=== PATIENT | female | born 1945 | race Caucasian/White ===

== ENCOUNTER 2018-01-18 15:36 | Emergency (ER) | payer MEDICARE, MEDICAID ==
[~2018-01-18] VITALS: Ht 167.6 cm; Wt 104.0 kg
[~2018-01-18 15:36] MED LIST: ALBU8HFA PO; AZEL30SP BOTHNARES; METH4TAB81 PO; PRED50TA PO
[2018-01-18 15:39] VITALS: BP 172/66
[2018-01-18] MEDS ORDERED: ipratropium/albuterol 3ml nebule NEB ONE (15:50)
[2018-01-18] MEDS ORDERED: METH4TAB81 PO (15:51)
[2018-01-18] MEDS ORDERED: ALBU8.5H8 IH (15:51)
[2018-01-18] MEDS ORDERED: DOXY100C43 PO (15:51)
== END 2018-01-18 16:34 | disposition home or self-care (01) ==
LOC: ER 15:36
DX: J44.1 Chronic obstructive pulmonary disease with (acute) exacerbation (principal); Z90.49 Acquired absence of other specified parts of digestive tract; Z79.899 Other long term (current) drug therapy; Z87.891 Personal history of nicotine dependence
CPT/HCPCS: 94640; 94760; 99284

== ENCOUNTER 2018-04-29 16:26 | Emergency (ER) | payer MEDICARE, MEDICAID ==
[~2018-04-29] VITALS: Ht 167.6 cm; Wt 95.0 kg
[~2018-04-29 16:26] MED LIST changes: +ALBU8.5H8 IH
[2018-04-29] MEDS ORDERED: CITA-278 PO (17:07)
[2018-04-29] MEDS ORDERED: RISP4TAB7 PO (17:07)
[2018-04-29 17:40] LABS: BASOPHILS % (AUTO) 0.7 % (0-1); EOSINOPHILS # (AUTO) 0.1 X10'3 (0-0.9); EOSINOPHILS % (AUTO) 2.4 % (0-6); HEMATOCRIT 38.8 % (35.0-45.0); HEMOGLOBIN 12.8 g/dl (12.0-16.0); LYMPHOCYTES # (AUTO) 1.5 X10'3 (1.1-4.8); LYMPHOCYTES % (AUTO) 24.7 % (21-51); MEAN CORPUSCULAR HEMOGLOBIN 30.1 PG (27.0-31.0); MEAN CORPUSCULAR HGB CONC 33.1 g/dL (33.0-36.5); MEAN CORPUSCULAR VOLUME 90.8 FL (78-98); MEAN PLATELET VOLUME 8.2 FL (7.4-10.4); MONOCYTES # (AUTO) 0.6 X10'3 (0-0.9); MONOCYTES % (AUTO) 9.2 % (2-12); NEUTROPHILS # (AUTO) 3.9 X10'3 (1.8-7.7); PLATELET COUNT 196 X10'3 (140-440); RED BLOOD COUNT 4.27 X10'6 (4.20-5.60); WHITE BLOOD COUNT 6.1 X10'3 (4.5-11.0)
[2018-04-29 17:55] LABS: ALANINE AMINOTRANSFERASE 19 U/L (12-78); ALBUMIN 3.4 G/DL (3.4-5.0); ALBUMIN/GLOBULIN RATIO 1.1 (1.1-1.5); ALKALINE PHOSPHATASE 60 IU/L (46-116); ANION GAP 6 (8-16); ASPARTATE AMINO TRANSFERASE 12 U/L (10-37); BILIRUBIN,TOTAL 0.2 MG/DL (0.1-1.0); BLOOD UREA NITROGEN 17 MG/DL (7-18); BUN/CREATININE RATIO 23.3 (6.6-38.0); CALCIUM 8.6 MG/DL (8.5-10.1); CHLORIDE 104 MMOL/L (99-107); CREATININE 0.73 MG/DL (0.40-0.90); ETHANOL < 0.010 GM/DL (0.0-0.010); GLUCOSE 90 MG/DL (70-104); SODIUM 141 MMOL/L (135-145); TOTAL CARBON DIOXIDE 31.4 MMOL/L (24-32); TOTAL PROTEIN 6.6 G/DL (6.4-8.2); eGFR 78 ML/MIN
[2018-04-29] MEDS ORDERED: RISP2TAB3 PO (18:00)
[2018-04-29 18:26] LABS: CLARITY,URINE CLEAR (Clear); COLOR,URINE YELLOW (Yellow); GLUCOSE, URINE NEGATIVE (Neg); KETONES,URINE NEGATIVE (Neg); LEUKOCYTE ESTERASE ,URINE NEGATIVE (Neg); NITRITES, URINE NEGATIVE (Neg); OCCULT BLOOD,URINE TRACE-LYSED (Neg); PROTEIN,URINE NEGATIVE (Neg); UA COLLECTION TYPE CLN CATCH MIDSTREAM; UROBILINOGEN,URINE 0.2 E.U/dL (0.2-1.0)
[2018-04-29 18:28] LABS: URINE AMPHETAMINE SCREEN NEGATIVE (Neg); URINE BARBITUATE SCREEN NEGATIVE (Neg); URINE BENZODIAZEPINES SCREEN NEGATIVE (Neg); URINE CANNABINOID SCREEN NEGATIVE (Neg); URINE COCAINE SCREEN NEGATIVE (Neg); URINE METHADONE SCREEN NEGATIVE (Neg); URINE OPIATE SCREEN NEGATIVE (Neg); URINE PHENCYCLIDINE SCREEN NEGATIVE (Neg)
[2018-04-29 18:44] LABS: SQUAMOUS EPITHELIAL CELL,UR FEW /LPF (FEW)
[2018-04-29 18:45] LABS: BACTERIA,URINE NONE SEEN /HPF (Neg); RBC,URINE 0-2 /HPF (0-2); WBC,URINE NONE SEEN /HPF (0-4)
--- NOTE | 2018-04-29 19:14 | NUR ---
Telepsych MD called for information on case, patient woken and aware of MD call. Will continue to monitor.
[2018-04-29] MEDS: risperiDONE 2mg tablet PO SCH (20:48)
--- NOTE | 2018-04-30 01:44 | NUR ---
Resting in bed with eyes closed, appearing to sleep comfortably with even and unlabored respirations. No new concerns or issues noted. Will continue to monitor.
--- NOTE | 2018-04-30 07:00 | NUR ---
Received pt lying in bed without complaints, talking quietly to herself.
[2018-04-30] MEDS: citalopram 20mg tablet PO SCH (08:00)
[2018-04-30] MEDS: risperiDONE 2mg tablet PO SCH ×2 (08:13→19:35)
--- NOTE | 2018-04-30 09:00 | NUR ---
Pt ate breakfast and remains pleasantly confused. Pt also delusional stating that she has a two year old child and that she came in here .
--- NOTE | 2018-04-30 11:00 | NUR ---
Pt remains in bed without complaints. Pt did make some phone calls and remained appropriate. Pt was incontinent of urine. She was able to ambulate to the bathroom and clean up herself.
--- NOTE | 2018-04-30 13:00 | NUR ---
Pt up to the bathroom x 1 and was in the bathroom talking heatedly to herself. Pt appeared somewhat agitated when she exited, but was appropriate when staff asked her if she was ok.
--- NOTE | 2018-04-30 15:00 | NUR ---
Pt continues to rest quietly in bed without complaints talking quietly to herself at times.
--- NOTE | 2018-04-30 17:00 | NUR ---
pt resting quietly in the bed without complaints.
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
--- NOTE | 2018-04-30 21:16 | NUR ---
APPEARS TO BE SLEEPING, NO FURTHER OUTBURSTS.
[2018-05-01] MEDS ORDERED: acetaminophen 325mg tablet PO PRN (05:20)
--- NOTE | 2018-05-01 06:08 | NUR ---
PT MEDICATED FOR C/O LOW BACK PAIN.
--- NOTE | 2018-05-01 07:10 | NUR ---
RESTING ON LEFT SIDE EYES CLOSED RR EQUAL AND UNLABORED
--- NOTE | 2018-05-01 08:03 | NUR ---
RESTING ON LEFT SIDE EYES CLOSED RR EQUAL AND UNLABORED
[2018-05-01] MEDS: citalopram 20mg tablet PO SCH (08:21)
[2018-05-01] MEDS: risperiDONE 2mg tablet PO SCH ×2 (08:21→19:56)
--- NOTE | 2018-05-01 08:26 | NUR ---
PT AWAKE ATE 100% OF BREAKFAST
--- NOTE | 2018-05-01 08:47 | NUR ---
UP TO BR, STEADY GATE, NO NEEDS
--- NOTE | 2018-05-01 09:11 | NUR ---
UP TO BR
--- NOTE | 2018-05-01 10:47 | NUR ---
UP TO BR
--- NOTE | 2018-05-01 14:56 | NUR ---
PT AWAKE SITTING ON SIDE OF BED READING A BOOK.
--- NOTE | 2018-05-01 17:58 | NUR ---
PT AWAKE WAITING FOR DINNER
--- NOTE | 2018-05-02 03:38 | NUR ---
Pt had an incontient episode of urine. Pt given fresh pjamas and fresh bedlinen was placed on bed. Pt requested sanitary towel and mesh undergarments - both provided for pt. Pt ambulated to restroom to change, no assistance required.
--- NOTE | 2018-05-02 04:24 | NUR ---
AWAKE EARLY, INCONT OF URINE, GIVEN BATH WIPES AND CLEAN GOWN/ LINEN.
--- NOTE | 2018-05-02 07:00 | NUR ---
PT RESTING QUIETLY, RESPIRATIONS NORMAL
--- NOTE | 2018-05-02 08:00 | NUR ---
PT UP TO NURSES STATION REQUESTING NEW GOWN.
--- NOTE | 2018-05-02 09:00 | NUR ---
PT EATING BREAKFAST.
--- NOTE | 2018-05-02 09:59 | NUR ---
PT ARGUING WITH HERSELF REGARDING OATMEAL
[2018-05-02] MEDS: risperiDONE 2mg tablet PO SCH ×2 (10:50→19:37)
[2018-05-02] MEDS: citalopram 20mg tablet PO SCH (10:50)
--- NOTE | 2018-05-02 11:00 | NUR ---
PT REQUESTING WATER
--- NOTE | 2018-05-02 12:00 | NUR ---
PT EATING LUNCH
--- NOTE | 2018-05-02 13:00 | NUR ---
PT RESTING QUIETLY
--- NOTE | 2018-05-02 14:00 | NUR ---
PT RESTING QUIETLY
--- NOTE | 2018-05-02 15:00 | NUR ---
PT RESTING QUIETLY
--- NOTE | 2018-05-02 16:00 | NUR ---
PT RESTING COMFORTABLY
--- NOTE | 2018-05-02 17:23 | NUR ---
PT UP TO RESTROOM
[2018-05-02 17:35] VITALS: BP 141/58
--- NOTE | 2018-05-02 19:48 | NUR ---
AWAITING TRANSFER TO [facility]
--- NOTE | 2018-05-02 20:48 | NUR ---
[facility] CALLED AND WILL BE DOWN TO BROADCAST DIRECTOR OPERATIONS PT SHORTLY
== END 2018-05-02 21:06 ==
LOC: ER 16:27
DX: F20.9 Schizophrenia, unspecified (principal); J45.909 Unspecified asthma, uncomplicated; F41.9 Anxiety disorder, unspecified
CPT/HCPCS: 36415; 80053; 80305; 80320; 81001; 85025; 99285

== ENCOUNTER 2018-05-02 19:15 | Inpatient (IN) | payer MEDICARE, MEDICAID ==
[~2018-05-02] VITALS: Ht 167.6 cm; Wt 109.1 kg
[~2018-05-02 19:15] MED LIST changes: -ALBU8.5H8 IH; -AZEL30SP BOTHNARES; +CITA-278 PO; -METH4TAB81 PO; -PRED50TA PO; +RISP2TAB3 PO
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
[2018-05-03] MEDS ORDERED: mag hydrox/Alum hydrox/simeth 30ml oral suspension PO PRN (00:25)
[2018-05-03] MEDS ORDERED: magnesium hydroxide 30ml (MOM) UD suspension PO PRN (00:25)
[2018-05-03 07:16] VITALS: BP 149/65
[2018-05-03] MEDS ORDERED: risperiDONE 2mg tablet PO SCH (08:00)
[2018-05-03] MEDS: citalopram 20mg tablet PO SCH (08:44)
[2018-05-03] MEDS ORDERED: tuberculin, purif. prot. deriv. 5 units/0.1ml ID ONE (10:00)
--- NOTE | 2018-05-03 15:19 | NUR ---
1:1 DISCHARGE PLANNING WILFRID contacted Braxton at [place] Office regarding patient to learn the [facility]'s perspective regarding LPS Conservatorship. WILFRID informed that PG meeting would occur on 05/04/2018 and Braxton would discuss patient at meeting, then follow up. WILFRID transferred to Dr. Stephan Lockwood voicemail. WILFRID left message regarding concerns and questions from Dr. Boggs during tx team. WILFRID left contact information and request for a return call. NADER Graves
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
[2018-05-03 20:00] VITALS: BP 146/50
[2018-05-03] MEDS: risperiDONE 2mg tablet PO SCH (20:48)
[2018-05-03] MEDS: risperiDONE 0.5mg tablet PO SCH (20:48)
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
[2018-05-04] MEDS: citalopram 20mg tablet PO SCH (07:45)
[2018-05-04] MEDS: risperiDONE 0.5mg tablet PO SCH ×2 (07:46→21:02)
[2018-05-04] MEDS: risperiDONE 2mg tablet PO SCH ×2 (07:46→21:02)
[2018-05-04 07:58] VITALS: BP 143/55
--- NOTE | 2018-05-04 08:33 | NUR ---
1:1 DISCHARGE PLANNING 08:31 hours WILFRID made TC to Braxton at [place] Office [phone], to learn the [facility]'s decision regarding LPS Conservatorship for patient. WILFRID left message requesting a return contact. NADER Graves Addendum: 05/04/18 at 1047 by Nora Ochoa 10:39 hours WILFRID contacted [place] at [employer], who reports she does not have status update regarding Probate Conservatorship and transferred SW to Laura Mckinney, [employer] of PG. WILFRID left message requesting return contact with update regarding patient's status from court on 05/03/2018. NADER Graves Addendum: 05/04/18 at 1207 by Nora Ochoa WILFRID made TC to [place] [facility] Braxton at [phone], who reports she will not confirmation of the county's decision regarding LPS Conservatorship until administrative team and psychologist are contacted to interview pt and assess her level of need. SW agreed to return contact to [facility] by the end of the week. NADER Graves
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
[2018-05-04 19:17] VITALS: BP 143/48
[2018-05-04 19:19] VITALS: BP_SYST 143
[2018-05-04 20:00] VITALS: BP 120/54
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
[2018-05-05 08:00] VITALS: BP 123/54
[2018-05-05] MEDS: citalopram 20mg tablet PO SCH (08:28)
[2018-05-05] MEDS: risperiDONE 2mg tablet PO SCH ×2 (08:28→21:19)
[2018-05-05] MEDS: risperiDONE 0.5mg tablet PO SCH ×2 (08:29→21:19)
--- NOTE | 2018-05-05 14:22 | NUR ---
1:1 DISCHARGE PLANNING SW received TC from Dr. Stephan Lockwood at [facility], who reports he has been working with administrative team at [facility] regarding potential LPS conservatorship of pt. Dr. Lockwood confirmed [facility] allows 3 administrative days and agreed to contact Public [facility] to present current information and repeat hospitalization of pt. NADER Graves
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
[2018-05-05 19:52] VITALS: BP 120/60
[2018-05-05] MEDS: ipratropium/albuterol 3ml nebule NEB PRN (20:38)
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
[2018-05-06] MEDS: risperiDONE 0.5mg tablet PO SCH ×2 (07:02→20:26)
[2018-05-06] MEDS: risperiDONE 2mg tablet PO SCH ×2 (07:02→20:26)
[2018-05-06] MEDS: citalopram 20mg tablet PO SCH (07:03)
[2018-05-06 08:00] VITALS: BP 136/62
--- NOTE | 2018-05-06 09:14 | NUR ---
Initial: Pt admitted to [facility] with psychosis. Pt currently on a regular diet with documented PO intake 100% throughout LOS meeting nutrient needs. [facility] 05/05. No nutrition diagnosis at this time. Will continue to follow. Recommendations: 1) Continue with regular diet 2) Weekly wt Addendum: 05/06/18 at [address] Amended: Links added.
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
[2018-05-06 19:00] VITALS: BP 129/50
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
[2018-05-07] MEDS: ipratropium/albuterol 3ml nebule NEB PRN (07:19)
[2018-05-07 07:49] VITALS: BP 152/57
[2018-05-07] MEDS: citalopram 20mg tablet PO SCH (08:01)
[2018-05-07] MEDS: risperiDONE 0.5mg tablet PO SCH ×2 (08:01→21:39)
[2018-05-07] MEDS: risperiDONE 2mg tablet PO SCH ×2 (08:01→21:39)
--- NOTE | 2018-05-07 14:14 | NUR ---
1:1 DISCHARGE PLANNING WILFRID made TC to [facility] at [place] Office [phone], leaving message regarding pt placement and updates. WILFRID requested a return contact. NADER Graves
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
[2018-05-07 19:35] VITALS: BP 144/50
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
[2018-05-08 07:47] LABS: CHOLESTEROL 196 MG/DL (0-200); HDL CHOLESTEROL 66 MG/DL (35-60); LDL CHOLESTEROL 117 MG/DL (50-100); TRIGLYCERIDES 70 MG/DL (20-135)
[2018-05-08 07:55] LABS: HEMOGLOBIN A1C 5.6 % (4.5-6.2)
[2018-05-08] MEDS: risperiDONE 2mg tablet PO SCH ×2 (07:57→20:20)
[2018-05-08] MEDS: risperiDONE 0.5mg tablet PO SCH ×2 (07:57→20:20)
[2018-05-08] MEDS: citalopram 20mg tablet PO SCH (07:57)
[2018-05-08 08:00] VITALS: BP 138/50
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
[2018-05-08 20:00] VITALS: BP 108/84
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
[2018-05-09 07:16] VITALS: BP 142/70
[2018-05-09] MEDS: risperiDONE 2mg tablet PO SCH ×2 (08:03→20:09)
[2018-05-09] MEDS: citalopram 20mg tablet PO SCH (08:03)
[2018-05-09] MEDS: risperiDONE 0.5mg tablet PO SCH ×2 (08:04→20:10)
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
[2018-05-09 20:00] VITALS: BP_SYST 141; BP_SYST 166; BP_DIAS 58; BP_DIAS 65
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
[2018-05-10 08:00] VITALS: BP 148/41
[2018-05-10] MEDS: citalopram 20mg tablet PO SCH (08:00)
[2018-05-10] MEDS: risperiDONE 2mg tablet PO SCH ×3 (08:00→20:28)
[2018-05-10] MEDS: risperiDONE 0.5mg tablet PO SCH (08:02)
[2018-05-10] MEDS: acetaminophen 325mg tablet PO PRN (10:05)
[2018-05-10 20:00] VITALS: BP 141/58
--- NOTE | 2018-05-11 02:38 | NUR ---
RN PROGRESS NOTE: Chief Complaint: Psychosis Legal hold: 5250 Client on involuntary status for GD Report received from TIFF Melendez with use of SBAR: Why are they here: This is a woman with long history of mental illness. She comes to [facility] with grave disability. She was staying at the [facility] when she started acting psychotic and irate, making statements about being raped and excreting other peoples feces. She is now homeless with nowhere to go. Diagnosis/presenting symptoms: Paranoid Schizophrenia with delusional statements, paranoia, GD. Assessment: What has happened this shift: The patient was in her bed at shift change. She agreed to 1:1 at bedside. "I just have to lay down to get my breathing recreated you know, I get that special air effect when I lie down." She was done talking to me and began having a conversation with nobody. "She could have been my daughter, I sure love her. You don't have to use me as a Guinea Pig to operate on. What are you gonna do fuck me with your scar tissue? Answer the question Carlos Craven, quit infusing me with your sperm. You have to stop eating cause I'm tired of shitting out your food." The patient remained in her bed all night, took her HS meds and declined snacks. S/I, H/I: Denies A/VH: Denies, but is heard responding to internal stimuli. Sleep: Stayed in bed all shift. ADL's: Independent Group attendance: No groups at night. Were meds taken: Yes Any med S/E: None noted. Mental Status Exam Appearance: Elderly woman lying in bed looking disheveled, hair not brushed. Eye contact: Direct. Behavior: Pleasant and cooperative. Speech: Soft voice. normal rate/volume. Mood: "I feel fine." Affect: Blunted, flat. Thought process: Tangential, disorganized, loose associations. Thought Content: Many delusional statements made. Cognition: A&O Insight: Poor. Judgment: Poor. Interventions: PRN's used: None Therapeutic interventions: Provided active listening with positive reinforcement, maintained a safe and therapeutic environment, encouraged self performance of ADLs and offered assistance, encouraged pt. to focus on tasks, and maintained Q 15 min safety checks. Restraints/seclusion/emergency medication: N/A Justification of Continued Inpatient Treatment: Pt. requires further stabilization on medications and remains gravely disabled without the ability to manage her environment or a discharge plan. Continued therapeutic support and medication management needed to provide stabilization, prevent decompensation, decreasing risk to patient and readmittance.
[2018-05-11 07:18] VITALS: BP 166/86
[2018-05-11] MEDS: risperiDONE 2mg tablet PO SCH ×3 (08:47→20:28)
[2018-05-11] MEDS: risperiDONE 0.5mg tablet PO SCH (08:47)
[2018-05-11] MEDS: citalopram 20mg tablet PO SCH (08:48)
--- NOTE | 2018-05-11 16:09 | NUR ---
1:1 DISCHARGE PLANNING SW sent referral to [facility] AOT team for possible AOT housing and program acceptance. SW informed pt is not being considered for [facility] Conservatorship at this time. NADER Graves
--- NOTE | 2018-05-11 16:29 | NUR ---
RN PROGRESS NOTE: DB note Chief Complaint: Psychosis Legal hold: 5250 Client on involuntary status for GD Report received from TIFF Melendez with use of SBAR: Why are they here: This is a woman with long history of mental illness. She comes to [facility] with grave disability. She was staying at the [facility] when she started acting psychotic and irate, making statements about being raped and excreting other peoples feces. She is now homeless with nowhere to go. Diagnosis/presenting symptoms: Paranoid Schizophrenia with delusional statements, paranoia, GD. Assessment: What has happened this shift: Pt. Is calm and cooperative throughout the day. Pt. Is seen in the day room in group and eating her meals. Pt. Has been focused on writing a writ to protest her conserve, talking with staff about how to properly fill one out. Write completed and sent to Anna to submit. Pt. Reports she took a big formed BM today. WILFRID sent referral to [facility] AOT team for possible AOT housing and program acceptance. WILFRID informed pt is not being considered for [facility] Conservatorship at this time. S/I, H/I: Denies A/VH: Pt. Denies, but is heard responding to internal stimuli. Sleep: Pt. Was up all day. ADL's: Independent Group attendance: Pt. Went to group. Were meds taken: Yes Any med S/E: None noted. Mental Status Exam Appearance: Elderly woman looking disheveled, hair not brushed. Eye contact: Direct. Behavior: Pleasant and cooperative. Speech: Soft voice. normal rate/volume. Mood: "I feel good" Affect: Blunted, flat. Thought process: Tangential, disorganized, loose associations. Thought Content: Many delusional statements made. Cognition: A&O Insight: Poor. Judgment: Poor. Interventions: PRN's used: None Therapeutic interventions: Provided active listening with positive reinforcement, maintained a safe and therapeutic environment, encouraged self performance of ADLs and offered assistance, encouraged pt. to focus on tasks, and maintained Q 15 min safety checks. Restraints/seclusion/emergency medication: N/A Justification of Continued Inpatient Treatment: Pt. requires further stabilization on medications and remains gravely disabled without the ability to manage her environment or a discharge plan. Continued therapeutic support and medication management needed to provide stabilization, prevent decompensation, decreasing risk to patient and readmittance.
[2018-05-11 19:58] VITALS: BP 118/55
--- NOTE | 2018-05-12 03:15 | NUR ---
Nursing Note: Chief Complaint: Psychosis Legal hold: 5250 Client on involuntary status for GD Report received from nurse with use of SBAR: TIFF Saeed Why are they here: Pt has no plan for food, clothing, and skilled nursing and has a long MH history of paranoid schizophrenia. She was a patient at [facility] from 04/07 to 04/29, and was discharged to [facility], however become psychotic and irate, making delusional statements. Pt/ was brought to [facility] ER and was placed on a 5150 fro GD. Pt. continues to make delusional statements and remains on a 5250, however is in the process of filing a Writ. Diagnosis/presenting symptoms: Pt. presents with continued active delusions, irritability, and is guarded this shift and resistive care. Assessment What has happened this shift: Pt. in laying in bed at beginning of the shift, continued to isolate in room throughout the shift. This keno writer/runner awoke pt. to administer medications at HS. Attempted to complete 1:1, she presents with continued active delusions, irritability, and is guarded and resistive care. Pt. is compliant with medications, however refuses physical/mental assessment or HS snack, states, "Not now, I just want to sleep." Pt. up out of bed to check the clock in the hallway at approximately 2340, she is unable to accurately tell the time and asks this keno writer/runner to assist her, she then returns to bed. Pt. up again at approximately midnight and requests to watch TV. Pt. in the Recreation Room making continuous loud burping noises, this keno writer/runner asks her if there is something she needs and pt requests a snack. This keno writer/runner encourages pt. to return to bed after she eats her snack, she complies. S/I, H/I: N/A A/VH: Remains actively delusional Sleep: Presents as fatigued, in bed throughout the shift ADL's: Able to eat and use the BR independently, however is incontinent at times (changes own brief) Group attendance: Pt. attended groups today Were meds taken: Yes Any med S/E: None Mental Status Exam Appearance: Hair disheveled, however appropriately dressed in own clothing. Eye contact: Poor Behavior: Reisistive to care, guarded, and withdrawn. Psychomotor activity WNL Speech: Soft and monotonous Mood: Paranoid delusional and guarded Affect: Constricted Thought process: Internal preoccupation regarding delusions and thought blocking Thought Content: Paranoid delusional with perseveration regarding delusional thinking Cognition: A&O X2 (name and place) Insight: Poor Judgment: Poor Interventions PRN's used: None Therapeutic interventions: Provided active listening, maintained a safe and therapeutic environment, provided clear/simple instructions, reoriented to reality as needed, encouraged self performance of ADLs and offered assistance, encouraged pt. to focus on tasks, and maintained Q 15 min safety checks. Restraints/seclusion/emergency medication: N/A Justification of Continued Inpatient Treatment: Pt. remains gravely disabled without the ability to manage her environment or a discharge plan.
[2018-05-12 07:47] VITALS: BP 125/68
[2018-05-12] MEDS: citalopram 20mg tablet PO SCH (08:54)
[2018-05-12] MEDS: risperiDONE 2mg tablet PO SCH ×3 (08:54→20:47)
[2018-05-12] MEDS: risperiDONE 0.5mg tablet PO SCH (08:54)
--- NOTE | 2018-05-12 12:01 | NUR ---
Reassessment: Documented PO intake 100% on regular diet meeting nutrient needs. [facility] 05/12. will continue to follow. Recommendations: 1) Continue with regular diet 2) Weekly wt Addendum: 05/12/18 at [address] Amended: Links added.
--- NOTE | 2018-05-12 17:07 | NUR ---
Nursing Note Chief Complaint: Psychosis Legal hold: 5250 Client on involuntary status for GD Report received from TIFF Gaffney with use of SBAR Why are they here: Pt has no plan for food, clothing, and retirement and has a long MH history of paranoid schizophrenia. She was a patient at [facility] from 04/07 to 04/29, and was discharged to [facility], however become psychotic and irate, making delusional statements. Pt was brought to [facility] ER and was placed on a 5150 fro GD. Pt. continues to make delusional statements and remains on a 5250, however is in the process of filing a Writ. Diagnosis/presenting symptoms: Pt presents with continued active delusions Assessment What has happened this shift: Pt met with RN for 1:1 assessment at the bedside. She presents calm and cooperative, smiling, delusional, thoughts are disorganized. She is talking to this RN about Mao Nancy-tung he's a toy painter who connected to me like that (snaps her fingers) and made my lungs dry because he's a toy painter. I was in the motel eating pizza and I saw this lady who says Im Dea...he wheezes and you can taste the paint in his lungs. When asked why she cant return to [place] she states there's a lady there who's a vegetarian and she goes around saying that's cat shit for Aaliyah and I say that its not. Dea is my niece she told me I couldn't eat any food. Luis F followed me to [place] and I was working there. I was engaged to be to [place]. S/I, H/I: denies A/VH: denies Sleep: no complaints re sleep ADL's: independent Group attendance: Pt. attended groups today Were meds taken: yes Any med S/E: none observed or reported Mental Status Exam Appearance: hair is pulled back in a pony tail, dressed appropriately in street clothes Eye contact: good, direct Behavior: calm and cooperative with interview, no psychomotor abnormalities Speech: clear, normal rate and rhythm Mood: no complaints re mood Affect: mildly constricted with brightening Thought process: delusional Thought Content: fixed somatic delusions Cognition: A&O X2 (name and place) Insight: Poor Judgment: Poor Interventions PRN's used: None Therapeutic interventions: Provided active listening, maintained a safe and therapeutic environment, encouraged patient to engage in group activities Restraints/seclusion/emergency medication: N/A Justification of Continued Inpatient Treatment: Pt. remains gravely disabled without the ability to manage her environment or a discharge plan.
[2018-05-12 20:00] VITALS: BP 139/54
--- NOTE | 2018-05-13 00:31 | NUR ---
Nursing Note: Chief Complaint: Psychosis Legal hold: 5250 Client on involuntary status for GD Report received from nurse with use of SBAR: TIFF Blanchard Why are they here: Pt has no plan for food, clothing, and long term and has a long MH history of paranoid schizophrenia. She was a patient at [facility] from 04/07 to 04/29, and was discharged to [facility], however become psychotic and irate, making delusional statements. Pt/ was brought to [facility] ER and was placed on a 5150 fro GD. Pt. continues to make delusional statements and remains on a 5250. Diagnosis/presenting symptoms: Pt. presents with continued active delusions and possible A/H, as she is observed carrying on a conversation with herself. Assessment What has happened this shift: Pt. in laying in bed at beginning of the shift, continued to isolate here throughout the shift, however up briefly for HS snack. Again attempted to complete 1:1 at bedside, she presents as fatigued and guarded, however reports her day was good. Later, pt. up in hallway eating HS snack experiencing active delusions and possible A/H, as she is observed carrying on a conversation with herself. Pt. is compliant with medications and physical assessment this shift. S/I, H/I: N/A A/VH: Remains actively delusional and experiencing possible A/H Sleep: Presents as fatigued and reports she has been sleeping well ADL's: Able to eat and use the BR independently, however is incontinent at times (changes own brief). Pt. requires encouragement and direction with ADLs Group attendance: Pt. attended HS snack Were meds taken: Yes Any med S/E: Possible increased fatigue, will endorse to AM shift Mental Status Exam Appearance: Hair disheveled, however appropriately dressed Eye contact: Poor to fair Behavior: Cooperative, fatirued, guarded, and withdrawn. Psychomotor activity WNL Speech: Soft and monotonous Mood: Paranoid delusional and guarded Affect: Constricted Thought process: Internal preoccupation regarding delusions and thought blocking Thought Content: Paranoid delusional with perseveration regarding delusional thinking and possible A/H Cognition: A&O X2 (name and place) Insight: Poor Judgment: Poor Interventions PRN's used: None Therapeutic interventions: Provided active listening, maintained a safe and therapeutic environment, provided clear/simple instructions, reoriented to reality as needed, encouraged self performance of ADLs and offered assistance, encouraged pt. to focus on tasks, and maintained Q 15 min safety checks. Restraints/seclusion/emergency medication: N/A Justification of Continued Inpatient Treatment: Pt. remains gravely disabled without the ability to manage her environment or a discharge plan. Per Dr. Mcallister, [facility] has been contacted and she may possibly discharge to a locked Board & Care.
[2018-05-13] MEDS: citalopram 20mg tablet PO SCH (07:32)
[2018-05-13] MEDS: risperiDONE 2mg tablet PO SCH ×3 (07:33→20:36)
[2018-05-13] MEDS: risperiDONE 0.5mg tablet PO SCH (07:33)
[2018-05-13 07:43] VITALS: BP 142/48
[2018-05-13] MEDS: acetaminophen 325mg tablet PO PRN (07:54)
--- NOTE | 2018-05-13 08:45 | NUR ---
1:1 DISCHARGE PLANNING SW met with pt to discuss filing of Writ. Pt agreed to give SW time to create viable discharge plan with transitional housing and wraparound services before filing. Pt agrees she needs assistance with continued recovery services before discharging. NADER Graves
[2018-05-13 19:00] VITALS: BP 130/58
--- NOTE | 2018-05-14 00:08 | NUR ---
Nursing Note: Chief Complaint: Psychosis Legal hold: 5250 Client on involuntary status for GD Report received from nurse with use of SBAR: TIFF Saeed Why are they here: Pt has no plan for food, clothing, and detention and has a long MH history of paranoid schizophrenia. She was a patient at [facility] from 04/07 to 04/29, and was discharged to [facility], however become psychotic and irate, making delusional statements. Pt/ was brought to [facility] ER and was placed on a 5150 fro GD. Pt. continues to make delusional statements and remains on a 5250. Diagnosis/presenting symptoms: Pt. presents with continued active delusions and possible A/H, as she is observed carrying on a conversation with herself. Assessment What has happened this shift: Pt sitting in bedside chair at beginning of the shift, belching and seeming to talk to someone. She continued to isolate here throughout the shift and did not attend nightly snack. RN introduced self for 1:1 and patient was pleasant, cooperative, and smiling. States she is feeling better because she is "getting sassy" and wanting to hear back about the writ she submitted on 05/11. Says she will be "going to [place] because [place] is there and then [place] because of the [address]." Reports her day was fine except that she became paranoid when watching TV and had to stop. Pt. is compliant with medications and physical assessment this shift. S/I, H/I: N/A A/VH:Denies, but appears to respond to stimuli at times Sleep: Pt states she is rested ADL's: Able to eat and use the BR independently, however is incontinent at times (changes own brief). Pt. requires encouragement and direction with ADLs Group attendance: Pt did not attend HS snack Were meds taken: Y Any med S/E: N Mental Status Exam Appearance: Neat - clothing and hair Eye contact: Fair Behavior: Cooperative Psychomotor activity: WNL Speech: Soft Mood: Paranoid delusional Affect: Pleasant Thought process: Internal preoccupation regarding delusions and thought blocking Thought Content: Paranoid delusional with perseveration regarding delusional thinking and possible A/H Cognition: A&O to name and place Insight: Poor Judgment: Poor Interventions PRN's used: None Therapeutic interventions: Provided active listening, maintained a safe and therapeutic environment, provided clear/simple instructions, reoriented to reality as needed, encouraged self performance of ADLs and offered assistance, encouraged pt. to focus on tasks, and maintained Q 15 min safety checks. Restraints/seclusion/emergency medication: N/A Justification of Continued Inpatient Treatment: Pt. remains gravely disabled without the ability to manage her environment or a discharge plan. Possible D/C to [facility] pending.
[2018-05-14 08:00] VITALS: BP 176/54
[2018-05-14] MEDS: risperiDONE 0.5mg tablet PO SCH (08:26)
[2018-05-14] MEDS: risperiDONE 2mg tablet PO SCH ×3 (08:26→20:50)
[2018-05-14] MEDS: citalopram 20mg tablet PO SCH (08:26)
--- NOTE | 2018-05-14 12:51 | NUR ---
1:1 DISCHARGE PLANNING SW made TC to [facility] Office to regarding pt discharge planning and potential placement. WILFRID informed pt connected to [facility] Team at [facility]. Milana at [place] agreed to contact [facility] Historiographer for housing options, including "[place]" referral. NADER Graves
--- NOTE | 2018-05-14 16:18 | NUR ---
Nursing Note: Chief Complaint: Psychosis Legal hold: 5250 Client on involuntary status for GD Report received from nurse with use of SBAR: TIFF Trejo Why are they here: Pt has no plan for food, clothing, and fci and has a long MH history of paranoid schizophrenia. She was a patient at [facility] from 04/07 to 04/29, and was discharged to [facility], however become psychotic and irate, making delusional statements. Pt/ was brought to [facility] ER and was placed on a 5150 fro GD. Pt. continues to make delusional statements and remains on a 5250. Diagnosis/presenting symptoms: Schizophrenia, paranoid type. Pt. presents with continued active delusions and possible A/H, as she is observed carrying on a conversation with herself. Assessment What has happened this shift: Pt spends most of the day isolating appears to be responding to internal stimuli AEB her mouth moving and talking aloud. Up for meals and one group. Prompted ADLs. S/I, H/I: N/A A/VH:Denies, but appears to respond to stimuli at times Sleep: Denies sleeping when on her bed states she is resting. ADL's: Requires prompting and assistance. Group attendance: AM Were meds taken: Y Any med S/E: N Mental Status Exam Appearance: Same clothing as yesterday Eye contact: Fair Behavior: Cooperative Psychomotor activity: WNL Speech: Soft Mood: Paranoid delusional Affect: Pleasant Thought process: Internal preoccupation regarding delusions and thought blocking Thought Content: Paranoid delusional with perseveration regarding delusional thinking Cognition: A&O to name and place Insight: Poor Judgment: Poor Interventions PRN's used: None Therapeutic interventions: Provided active listening, maintained a safe and therapeutic environment, provided clear/simple instructions, reoriented to reality as needed, encouraged self performance of ADLs and offered assistance, encouraged pt. to focus on tasks, and maintained Q 15 min safety checks. Restraints/seclusion/emergency medication: N/A Justification of Continued Inpatient Treatment: Pt. remains gravely disabled without the ability to manage her environment or a discharge plan. Possible D/C to [facility] pending.
[2018-05-14 20:04] VITALS: BP 122/65
--- NOTE | 2018-05-15 02:03 | NUR ---
Nursing Note: Chief Complaint: Psychosis Legal hold: 5250 (as of 05/05) Client on involuntary status for GD Report received from nurse with use of SBAR: TIFF Hsu Why are they here: Pt has no plan for food, clothing, and intermediate and has a long MH history of paranoid schizophrenia. She was a patient at [facility] from 04/07 to 04/29, and was discharged to [facility], however become psychotic and irate, making delusional statements. Pt was brought to [facility] ER and was placed on a 5150 fro GD. Pt. continues to make delusional statements and remains on a 5250. Diagnosis/presenting symptoms: Pt. presents with continued active delusions and possible A/H, as she is observed carrying on a conversation with herself. Assessment What has happened this shift: Pt resting in bed at change of shift and did not attend HS snack this evening. States she "feels tired". RN introduced self for 1:1 and patient was pleasant, cooperative. Did not mention any of her usual fixations during assessment. Reports her day was fine and that she went to group "but I can't remember what I learned." Pt. is compliant with medications and physical assessment this shift. S/I, H/I: N/A A/VH:Denies Sleep:See sleep hours in [employer] ADL's: Able to eat and use the BR independently, however is incontinent at times (changes own brief). Pt. requires encouragement and direction with ADLs Group attendance: Pt did not attend HS snack Were meds taken: Y Any med S/E: N Mental Status Exam Appearance: Neat - clothing and hair Eye contact: Fair Behavior: Cooperative Psychomotor activity: WNL Speech: Soft Mood: Paranoid delusional Affect: Pleasant Thought process: Tangential Thought Content: Paranoid delusional with perseveration regarding delusional thinking and possible A/H Cognition: A&O to name and place Insight: Poor Judgment: Poor Interventions PRN's used: None Therapeutic interventions: Provided active listening, maintained a safe and therapeutic environment, provided clear/simple instructions, reoriented to reality as needed, encouraged self performance of ADLs and offered assistance, encouraged pt. to focus on tasks, and maintained Q 15 min safety checks. Restraints/seclusion/emergency medication: N/A Justification of Continued Inpatient Treatment: Pt. remains gravely disabled without the ability to manage her environment or a discharge plan. AOT to contact regarding transitional housing. Addendum: 05/15/18 at 0421 by Maya Christensen RN Pt woke and watched TV from 0215 to 0330. Belching frequently; when RN asked how the patient was doing and if she is experiencing indigestion pt stated "i have other peoples feces in me. I have to get it out." Pt did not want to go to sleep and declined the suggestion to read to help relax. Pt stated she wanted to finish the show; which she did and then returned to bed.
[2018-05-15 07:44] VITALS: BP 139/39
[2018-05-15] MEDS: risperiDONE 0.5mg tablet PO SCH (08:25)
[2018-05-15] MEDS: citalopram 20mg tablet PO SCH (08:26)
[2018-05-15] MEDS: risperiDONE 2mg tablet PO SCH ×3 (08:26→21:00)
[2018-05-15] MEDS: acetaminophen 325mg tablet PO PRN (12:26)
--- NOTE | 2018-05-15 16:34 | NUR ---
Nursing Note: Chief Complaint: Psychosis Legal hold: 5250 Client on involuntary status for GD Report received from nurse with use of SBAR: TIFF Trejo Why are they here: Pt has no plan for food, clothing, and fpc and has a long MH history of paranoid schizophrenia. She was a patient at [facility] from 04/07 to 04/29, and was discharged to [facility], however become psychotic and irate, making delusional statements. Pt/ was brought to [facility] ER and was placed on a 5150 fro GD. Pt. continues to make delusional statements and remains on a 5250. Diagnosis/presenting symptoms: Schizophrenia, paranoid type. Pt. presents with continued active delusions and possible A/H, as she is observed carrying on a conversation with herself. Assessment: Patient was asleep at change of shift and awoken for breakfast. Patient does not appear to interact with peers. Patient denies auditory/visual hallucinations but does mumble to herself and possibly responding to internal stimuli. Patient denies SI/HI and depression. RN asked patient where she lives and patient states she lives in [place] but she is homeless. Patient has a flast affect and show no emotion. Patient went in and out of morning group and went to afternoon group. Patient stated she had a large BM today and she felt better. Patient did not have any delusional states about her BM. S/I, H/I: N/A A/VH:Denies, but appears to respond to internal stimuli at times Sleep: Denies sleeping when on her bed states she is resting. ADL's: Requires prompting and assistance. Group attendance: AM Were meds taken: Y Any med S/E: N Mental Status Exam Appearance: Messy Eye contact: Fair Behavior: Cooperative Psychomotor activity: WNL Speech: Soft Mood: Depressed Affect: Flat Thought process: Disorganized Thought Content: Cognition: A&O to name and place Insight: Poor Judgment: Poor Interventions PRN's used: None Therapeutic interventions: Provided active listening, maintained a safe and therapeutic environment, provided clear/simple instructions, reoriented to reality as needed, encouraged self performance of ADLs and offered assistance, encouraged pt. to focus on tasks, and maintained Q 15 min safety checks. Restraints/seclusion/emergency medication: N/A Justification of Continued Inpatient Treatment: Pt. remains gravely disabled without the ability to manage her environment or a discharge plan. Possible D/C to [facility] pending.
[2018-05-15 20:00] VITALS: BP 124/54
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
[2018-05-16 07:28] VITALS: BP 127/65
[2018-05-16] MEDS: risperiDONE 0.5mg tablet PO SCH (07:38)
[2018-05-16] MEDS: risperiDONE 2mg tablet PO SCH ×3 (07:38→20:39)
[2018-05-16] MEDS: citalopram 20mg tablet PO SCH (07:38)
[2018-05-16] MEDS: acetaminophen 325mg tablet PO PRN (14:11)
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
[2018-05-16 19:05] VITALS: BP 128/74
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
[2018-05-17 07:30] VITALS: BP 139/48
[2018-05-17] MEDS: risperiDONE 2mg tablet PO SCH ×3 (07:37→20:35)
[2018-05-17] MEDS: citalopram 20mg tablet PO SCH (07:37)
[2018-05-17] MEDS: risperiDONE 0.5mg tablet PO SCH (07:37)
[2018-05-17] MEDS: acetaminophen 325mg tablet PO PRN (11:03)
[2018-05-17] MEDS ORDERED: benztropine 1 mg/ml 2ml ampule ONE (14:56)
--- NOTE | 2018-05-17 15:54 | NUR ---
1:1 DISCHARGE PLANNING SW faxed referral and updated notes to [facility] for discharge placement while patient transitions to AOT program. NADER Graves
--- NOTE | 2018-05-17 17:39 | NUR ---
RN PROGRESS NOTE for DB Chief Complaint: Grave disability, MDD, schizophrenia. Legal hold: LPS Conserved Report received from TIFF Saeed. Why are they here: This is a patient from [facility] that was place on 5150 for grave disability due to not showering for a week. She states that it's too hard and the water taylor her. Diagnosis/presenting symptoms: Major Depressive Disorder, Schizophrenia, hopeless, helpless, Anhedonia, isolative. Assessment Pt. is up and in day room at beggining of shift for meds and for breakfast. Pt. is appears more social as she did yesterday, pt. is seen conversing with other pt.s. Pt. is calm and cooperative. Pt. took medications. Pt. took 1 naps this morning. Pt. is social, Pt. discussed hopes of shower being fixed today with other patients. Pt. discussed in FLASH meeting today, discussed hope for pt. to be discharged to [facility] with AOT warp-around care as pt. has had frequent hospitalizations in the last 3 months. Pt.'s wt. taken today on standing scale, was 109.1, which is up up from 107 on 05/10. Pt. became increasingly agitated at the end of shift. responding to internal stimuli. Pt. has no PRNs. Pt. given PRN Tylenol @ 1100 for right knee and neck pain pain rated 5/10. Pt. reports good effect with 0 pain and hour later. S/I, H/I: Denies A/VH: Denies although appears to be responding to internal stimuli at times, but less frequently. Sleep: Pt. took 1 nap today which is decreased from yesterday. ADL's: gets up for meals and toileting. Group attendance: Pt. attended both groups. Were meds taken: Y Any med S/E: N/A Mental Status Exam Appearance: Clean; hair nicely washed Eye contact: Good. Behavior: Pt. is cooperative, taking meds, and going to groups. Psychomotor activity: WNL Speech: Appropriate Mood: Pleasant. Affect: Flat with brightening Thought process: Clear with moments of deulsional thinking. Thought Content: Delusional at times r/t right knee pain. Cognition: A/Ox3 Insight: Fair Judgment: Fair Interventions PRN's used: N/A Therapeutic interventions: Tylenol 650mg po for knee pain. Provided active listening and therapeutic communication; maintained a safe and therapeutic environment, encouraged and prompted ADLs, reinforced reality as needed, education provided on the importance of keeping skin clean and dry and allowing treatments, and maintained q 15 min safety checks. Restraints/seclusion/emergency medication: N/A Justification of Continued Inpatient Treatment: Pt. remains LPS Conserved and is awaiting placement through [facility]. Dr. Patterson wrote on 05/16, "D/C Social service to continue discharge planning, in my opinion she can also benefit from going into [facility] care, with good behavioral management therapy. Not necessarily she needs to be in IMD." Addendum: 05/17/18 at 1833 by Christophe Bejarano RN addendum. Pt. is not Conserved but is a 5250
[2018-05-17 20:26] VITALS: BP 161/70
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
[2018-05-18 07:40] VITALS: BP 158/64
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
[2018-05-18] MEDS: citalopram 20mg tablet PO SCH (08:29)
[2018-05-18] MEDS: risperiDONE 0.5mg tablet PO SCH (08:33)
--- NOTE | 2018-05-18 10:36 | NUR ---
Reassessment: Documented PO intake continues at 75-100% meeting nutrient needs. [facility] 05/17. Will continue to follow. Recommendations: 1) Continue with regular diet 2) Weekly wt Addendum: 05/18/18 at [address] Amended: Links added.
--- NOTE | 2018-05-18 11:57 | NUR ---
1:1 DISCHARGE PLANNING Pt attended interview with Matthew from [facility], who has accepted pt for placement. WILFRID instructed to contact Lorena with [facility] on 05/19/2018, to coordinate placement date. NADER Graves Addendum: 05/18/18 at 1220 by Nora Ochoa SS addition: WILFRID made TC to [facility] in [place], [place] to negotiate impound fees and pt's ability to flower picker her personal belongings. WILFRID left message requesting a return contact. Pt completed JANE to allow WILFRID to coordinate this service. JANE can be located in legal section of chart. [facility] [address] [place] [address] NADER Graves
--- NOTE | 2018-05-18 12:21 | NUR ---
RN Progress Note Patient walked out of group and came up to this assembly instructions writer and began to speak: "You know that girl with the braces on her teeth. I saw her in group. She opened her mouth and it felt like she was holding the back of my head with her teeth. Then my tooth right here broke off, and then another one. (Points to places in her mouth without teeth.) I thought I had braces too. She's the daughter of Vidal Alexander and Vandana Lim you know. Then she removed the scent off my banana. She's in the spouses's club. The spouses's club. That's hard you know." Left the area and went to watch tv in the rec room.
[2018-05-18] MEDS: risperiDONE 2mg tablet PO SCH ×3 (13:29→20:19)
[2018-05-18 20:11] VITALS: BP 147/51
--- NOTE | 2018-05-19 00:09 | NUR ---
Nursing Note: Chief Complaint: Psychosis Legal hold: 5250 Client on involuntary status for GD Report received from nurse with use of SBAR: Vandana RN Why are they here: Pt has no plan for food, clothing, and care home and has a long MH history of paranoid schizophrenia. She was a patient at [facility] from 04/07 to 04/29, and was discharged to [facility], however become psychotic and irate, making delusional statements. Pt/ was brought to [facility] ER and was placed on a 5150 fro GD. Pt. continues to make delusional statements and remains on a 5250. She will discharge tomorrow to [facility]. Diagnosis/presenting symptoms: Pt. presents with fatigue and continued active delusions. No s/s of response to internal stimuli exhibited this shift. Assessment What has happened this shift: Pt. in laying in bed at beginning of the shift, continued to isolate here throughout the shift and reports fatigue. This tag writer awoke pt. to administer HS medications, she was compliant with all care, however too fatigued to participate much with 1:1. Pt. continues to present as guarded with active delusions, however no s/s of response to internal stimuli exhibited this shift. She is alert and oriented X4, and correctly reports she is here for "Grave Disability." Pt. also states, " I forgot to tell the doctor that I have tendonitis in both knees." This tag writer questioned her regarding the need for any pain medication, however pt. refused and reported she would wait until the morning. She continues to rest comfortably, will monitor. S/I, H/I: N/A A/VH: Remains actively delusional, however no s/s of response to internal stimuli exhibited this shift Sleep: Presents as fatigued and remains in bed throughout the shift ADL's: Able to eat and use the BR independently, however is incontinent at times (changes own brief). Pt. requires encouragement with ADLs Group attendance: Pt. did not attend HS snack Were meds taken: Yes Any med S/E: Continued fatigue, will endorse to AM shift Mental Status Exam Appearance: Hair disheveled, however appropriately dressed Eye contact: Fair to good Behavior: Cooperative, fatigued, guarded, and withdrawn. Psychomotor activity WNL Speech: Soft and monotonous Mood: Paranoid delusional and guarded Affect: Constricted Thought process: Internal preoccupation regarding delusions and blocking in relation to mental illness Thought Content: Paranoid delusional with perseveration regarding delusional thinking Cognition: A&O X4 Insight: Poor Judgment: Poor to fair Interventions PRN's used: None Therapeutic interventions: Provided active listening, maintained a safe and therapeutic environment, provided clear/simple instructions, reoriented to reality as needed, encouraged self performance of ADLs and offered assistance, encouraged pt. to focus on tasks, and maintained Q 15 min safety checks. Restraints/seclusion/emergency medication: N/A Justification of Continued Inpatient Treatment: Pt. continues to present with active delusions, however per Nithin NESBITT, she is at Baseline. She will discharge tomorrow to [facility].
[2018-05-19] MEDS: risperiDONE 2mg tablet PO SCH (07:48)
[2018-05-19] MEDS: risperiDONE 0.5mg tablet PO SCH (07:48)
[2018-05-19] MEDS: citalopram 20mg tablet PO SCH (07:48)
[2018-05-19 08:00] VITALS: BP 137/66
[2018-05-19] MEDS ORDERED: ALBU8HFA PO (12:27)
[2018-05-19] MEDS ORDERED: RISP4TAB2 PO (12:27)
[2018-05-19] MEDS ORDERED: CITA-278 PO (12:27)
[2018-05-19] MEDS: acetaminophen 325mg tablet PO PRN (12:53)
--- NOTE | 2018-05-19 16:30 | NUR ---
DISCHARGE Patient discharged to [facility] at 1456 and transported via [facility] office. She is accompanied by...All valuable are with patient. Patient to follow up with Dr Villalta at [facility]. Patients mood is good with a brightening affect. Patient will on occasion make delusional statements however, none expressed to this RN today. This appears to be her baseline. Patient is not under any physical or emotional distress. Patient refused nicotine replacement during stay and does need it when leaving.
== END 2018-05-19 15:00 | disposition short-term general hospital (02) | DRG 885 ==
LOC: ADULT MH 19:15
PROVIDERS: ADMIT Psychiatry & Neurology Psychiatry; ATTEND Psychiatry & Neurology Psychiatry
DX: F20.0 Paranoid schizophrenia (principal); J45.909 Unspecified asthma, uncomplicated; F41.9 Anxiety disorder, unspecified; E66.9 Obesity, unspecified; F32.9 Major depressive disorder, single episode, unspecified; Z79.899 Other long term (current) drug therapy; Z87.891 Personal history of nicotine dependence; Z81.8 Family history of other mental and behavioral disorders; Z81.1 Family history of alcohol abuse and dependence; Z68.38 Body mass index [BMI] 38.0-38.9, adult
CPT/HCPCS: 36415; 80061; 83036; 87070; 94640; 94760; 99285; J0515

== ENCOUNTER 2018-06-07 08:40 | Emergency (ER) | payer MEDICARE, MEDICAID ==
[~2018-06-07] VITALS: Ht 172.7 cm; Wt 109.1 kg
[~2018-06-07 08:40] MED LIST changes: -CITA-278 PO; +CITA20TA28 PO; -RISP2TAB3 PO; +RISP4TAB2 PO
[2018-06-07] MEDS ORDERED: ipratropium/albuterol 3ml nebule NEB ONE (09:50)
[2018-06-07 09:57] LABS: EOSINOPHILS # (AUTO) 0.2 X10'3 (0-0.9); LYMPHOCYTES # (AUTO) 0.6 X10'3 (1.1-4.8); MONOCYTES # (AUTO) 0.6 X10'3 (0-0.9); NEUTROPHILS # (AUTO) 5.1 X10'3 (1.8-7.7); WHITE BLOOD COUNT 6.5 X10'3 (4.5-11.0)
[2018-06-07 09:59] LABS: BASOPHILS % (AUTO) 0.4 % (0-1); EOSINOPHILS % (AUTO) 2.7 % (0-6); HEMATOCRIT 36.7 % (35.0-45.0); HEMOGLOBIN 12.4 g/dl (12.0-16.0); LYMPHOCYTES % (AUTO) 9.7 % (21-51); MEAN CORPUSCULAR HEMOGLOBIN 30.9 PG (27.0-31.0); MEAN CORPUSCULAR HGB CONC 33.7 g/dL (33.0-36.5); MEAN CORPUSCULAR VOLUME 91.6 FL (78-98); MEAN PLATELET VOLUME 8.5 FL (7.4-10.4); MONOCYTES % (AUTO) 9.8 % (2-12); NEUTROPHILS % (AUTO) 77.4 % (42-75); PLATELET COUNT 158 X10'3 (140-440); RED CELL DISTRIBUTION WIDTH 14.5 % (11.5-14.5)
[2018-06-07 10:12] LABS: ALANINE AMINOTRANSFERASE 18 U/L (12-78); ALBUMIN 3.3 G/DL (3.4-5.0); ALBUMIN/GLOBULIN RATIO 1.1 (1.1-1.5); ALKALINE PHOSPHATASE 53 IU/L (46-116); ANION GAP 3 (8-16); ASPARTATE AMINO TRANSFERASE 15 U/L (10-37); BILIRUBIN,TOTAL 0.3 MG/DL (0.1-1.0); BLOOD UREA NITROGEN 7 MG/DL (7-18); BUN/CREATININE RATIO 11.1 (6.6-38.0); CALCIUM 8.6 MG/DL (8.5-10.1); CHLORIDE 107 MMOL/L (99-107); CREATININE 0.63 MG/DL (0.40-0.90); GLUCOSE 87 MG/DL (70-104); POTASSIUM 3.7 MMOL/L (3.5-5.1); SODIUM 144 MMOL/L (135-145); TOTAL CARBON DIOXIDE 33.7 MMOL/L (24-32); TOTAL PROTEIN 6.4 G/DL (6.4-8.2); eGFR > 90 ML/MIN
[2018-06-07] MEDS ORDERED: AZIT250T PO (10:18)
[2018-06-07] MEDS ORDERED: BENZ-16 PO (10:19)
--- NOTE | 2018-06-07 10:24 | NUR ---
RT at bedside.
[2018-06-07 10:40] VITALS: BP 159/50
== END 2018-06-07 11:09 | disposition home or self-care (01) ==
LOC: ER 08:40
DX: J44.1 Chronic obstructive pulmonary disease with (acute) exacerbation (principal); E66.9 Obesity, unspecified; Z90.49 Acquired absence of other specified parts of digestive tract; Z87.01 Personal history of pneumonia (recurrent)
CPT/HCPCS: 36415; 71046; 80053; 85025; 94640; 94760; 99284

== ENCOUNTER 2018-12-03 16:03 | Emergency (ER) | payer MEDICARE, MEDICAID ==
[~2018-12-03] VITALS: Ht 170.2 cm; Wt 81.8 kg
[2018-12-03 16:10] VITALS: BP 160/56
[2018-12-03 16:39] LABS: BASOPHILS # (AUTO) 0.1 X10'3 (0-0.2); BASOPHILS % (AUTO) 1.1 % (0-1); EOSINOPHILS # (AUTO) 0.2 X10'3 (0-0.9); EOSINOPHILS % (AUTO) 2.8 % (0-6); HEMATOCRIT 39.3 % (35.0-45.0); HEMOGLOBIN 13.1 g/dl (12.0-16.0); LYMPHOCYTES # (AUTO) 1.6 X10'3 (1.1-4.8); LYMPHOCYTES % (AUTO) 27.2 % (21-51); MEAN CORPUSCULAR HEMOGLOBIN 30.7 PG (27.0-31.0); MEAN CORPUSCULAR HGB CONC 33.2 g/dL (33.0-36.5); MEAN CORPUSCULAR VOLUME 92.5 FL (78-98); MEAN PLATELET VOLUME 8.7 FL (7.4-10.4); MONOCYTES # (AUTO) 0.6 X10'3 (0-0.9); MONOCYTES % (AUTO) 10.2 % (2-12); NEUTROPHILS # (AUTO) 3.4 X10'3 (1.8-7.7); NEUTROPHILS % (AUTO) 58.7 % (42-75); PLATELET COUNT 163 X10'3 (140-440); RED BLOOD COUNT 4.26 X10'6 (4.20-5.60); RED CELL DISTRIBUTION WIDTH 13.9 % (11.5-14.5); WHITE BLOOD COUNT 5.8 X10'3 (4.5-11.0)
[2018-12-03 16:55] LABS: ALANINE AMINOTRANSFERASE 22 U/L (12-78); ALBUMIN 3.4 G/DL (3.4-5.0); ALBUMIN/GLOBULIN RATIO 1.1 (1.1-1.5); ALKALINE PHOSPHATASE 63 IU/L (46-116); ANION GAP 6 (8-16); ASPARTATE AMINO TRANSFERASE 15 U/L (10-37); BILIRUBIN,TOTAL 0.2 MG/DL (0.1-1.0); BLOOD UREA NITROGEN 9 MG/DL (7-18); BUN/CREATININE RATIO 14.8 (6.6-38.0); CALCIUM 8.5 MG/DL (8.5-10.1); CHLORIDE 108 MMOL/L (99-107); CREATININE 0.61 MG/DL (0.40-0.90); ETHANOL < 0.010 GM/DL (0.0-0.010); GLUCOSE 88 MG/DL (70-104); POTASSIUM 3.9 MMOL/L (3.5-5.1); SODIUM 143 MMOL/L (135-145); TOTAL CARBON DIOXIDE 29.5 MMOL/L (24-32); TOTAL PROTEIN 6.4 G/DL (6.4-8.2); eGFR > 90 ML/MIN
--- NOTE | 2018-12-03 17:30 | NUR ---
Awaiting lab results for further orders or disposition for 5150 evaluation and admission.
[2018-12-03 18:30] LABS: URINE AMPHETAMINE SCREEN NEGATIVE (Neg); URINE BARBITUATE SCREEN NEGATIVE (Neg); URINE BENZODIAZEPINES SCREEN NEGATIVE (Neg); URINE CANNABINOID SCREEN NEGATIVE (Neg); URINE COCAINE SCREEN NEGATIVE (Neg); URINE METHADONE SCREEN NEGATIVE (Neg); URINE OPIATE SCREEN NEGATIVE (Neg); URINE PHENCYCLIDINE SCREEN NEGATIVE (Neg)
[2018-12-03 18:47] LABS: CLARITY,URINE CLEAR (Clear); COLOR,URINE YELLOW (Yellow); GLUCOSE, URINE NEGATIVE (Neg); KETONES,URINE NEGATIVE (Neg); LEUKOCYTE ESTERASE ,URINE NEGATIVE (Neg); NITRITES, URINE NEGATIVE (Neg); OCCULT BLOOD,URINE TRACE-INTACT (Neg); PROTEIN,URINE NEGATIVE (Neg); UROBILINOGEN,URINE 0.2 E.U/dL (0.2-1.0)
[2018-12-03 18:52] LABS: UA COLLECTION TYPE CLN CATCH MIDSTREAM
[2018-12-03 18:53] LABS: BACTERIA,URINE NONE SEEN /HPF (Neg); CAL OXALATE CRYSTALS FEW /HPF (NEGATIVE); RBC,URINE 0-2 /HPF (0-2); SQUAMOUS EPITHELIAL CELL,UR FEW /LPF (FEW); WBC,URINE NONE SEEN /HPF (0-4)
[2018-12-03] MEDS ORDERED: RISP4TAB2 PO (19:30)
[2018-12-03] MEDS ORDERED: ALBU8.5H8 IH (19:41)
[2018-12-03] MEDS ORDERED: CITA20TA28 PO (19:41)
[2018-12-03] MEDS ORDERED: albuterol 2.5 MG/3 ML nebule NEB PRN (19:55)
--- NOTE | 2018-12-03 19:58 | NUR ---
Packet faxed to [facility]
--- NOTE | 2018-12-03 20:54 | NUR ---
Patient moved to bed 24. She is able to stand up and transfer to the new bed. Patient states she is doing fine, she immediately rolls over and goes to sleep.
[2018-12-03] MEDS ORDERED: risperiDONE 2mg tablet PO SCH (21:00)
--- NOTE | 2018-12-03 22:20 | NUR ---
Patient is sleeping on her left side. In view from the nurses station.
--- NOTE | 2018-12-04 02:29 | NUR ---
Patient has been sleeping. Patient is awake now talking to registration. Plan is to transfer/admit for [facility].
[2018-12-04] MEDS ORDERED: citalopram 20mg tablet PO SCH (08:00)
== END 2018-12-04 03:16 ==
LOC: ER 16:03
DX: F23 Brief psychotic disorder (principal); E66.9 Obesity, unspecified; J44.9 Chronic obstructive pulmonary disease, unspecified; F41.9 Anxiety disorder, unspecified; Z90.49 Acquired absence of other specified parts of digestive tract; Z79.899 Other long term (current) drug therapy
CPT/HCPCS: 36415; 80053; 80305; 80320; 81001; 85025; 99285